=== PATIENT | female | born 1955 | race Caucasian/White ===

== ENCOUNTER → 2019-10-24 | Outpatient (CLI) | payer MEDICARE, SELFPAY | END | disposition home or self-care (01) | PROVIDERS: PCP Family Medicine; Referring Provider Physician Assistant; Visit Provider Physician Assistant | DX: Z20.828 Contact with and (suspected) exposure to other viral communicable diseases (principal) | CPT/HCPCS: 87635; G2023; U0003 ==

== ENCOUNTER → 2019-10-29 11:16 | Outpatient (CLI) | payer MEDICARE, SELFPAY ==
[2019-10-23 10:43] VITALS: BMI 26.6
--- NOTE | 2019-10-29 12:00 | BRBX_PTH ---
PATIENT: NITA FRYE LOC: [facility] U#:[id number] AGE/SX: 70/F ROOM: RE10/29/[address]: Dr. Sharon Marques MD : 1955 BED: DIS: SPEC #: [id number] RECD: 10/29/19 12:37 STATUS: EMILY REJennifer #: [id number] ИВАН: 10/29/19 12:[address]: Sharon Marques DEPT: SURGICAL PATHOLOGY RECD BY: Harsha Prasad ENTERED: 10/29/19 13:13 SP TYPE: BREAST BX JASON DR: Dr. Trace Hilario III, MD Tissues: Left breast, NOS Procedures: Surgery Specimen Level IV HEADER OPERATION: Left breast stereotactic biopsy PRE-OP DIAGNOSIS: Left breast calcifications middle depth 1 o'clock TISSUE SUBMITTED: Left breast core tissue ISCHEMIC TIME: 1 minute FIXATION TIME: 7.5 hours MICROSCOPIC DIAGNOSIS Left breast, calcifications middle depth 1 o'clock, stereotactic biopsy: Fibrocystic change and intraductal hyperplasia with multifocal atypia. Focal microcalcifications. Negative for malignancy. NOAH:sony 10/30/19 COMMENT Correlation with clinical, radiologic findings and appropriate follow up are necessary. Case has been reviewed in consultation with Dr. Beyer who concurs with the above diagnosis. IDC:AM MICROSCOPIC DESCRIPTION Slides are reviewed. GROSS DESCRIPTION Received in fixative is one container labeled with the patient name and designated left breast. The specimen consists of multiple elongated fragments of junior-yellow fibroadipose tissue that in aggregate measure 6 x 3 x 0.3 cm. The entire specimen is submitted in three cassettes. / NOAH:sony 10/29/19 TC:5 CPT: 78678
--- NOTE | 2019-10-29 12:25 | OP.PCM_ITS ---
Report of Operation Date of Procedure: 10/29/19 Pre-Operative Diagnosis: abnormal calcifications in left breast mammograms Post-Operative Diagnosis: same Surgery/Procedure Performed:: left breast stereotactic biopsy Description of Surgical Findings:: pleomorphic calcifications of left breast - upper outer quadrant Type of Anesthesia:: Local - 1%xylocaine Specimen's removed: left breast tissue Estimated Blood Loss (mL): minimal Description of Procedure: After informed consent was given, the patient was brought into the breast biopsy suite. Appropriate time out protocol was followed. She was then placed in the prone position on the stereotactic biopsy table. The patient?s left breast was then placed in the opening at the head of the table. A allergist/immunologist physician compression mammogram was then obtained in the CC view. The suspicious radiological lesion was then identified. Stereo pictures of the lesion were then taken for XYZ coordinates. The Mammotome biopsy stylus was then positioned where it would be entering into the patient?s breast. The skin at this site was then cleansed with a surgical skin preparation. The skin and subcutaneous tissues at this site were then infiltrated with 1% xylocaine. A small skin incision was made with an 11 blade scalpel. The biopsy stylus was then positioned into the patient?s breast at the proper coordinates of depth. Using the Mammotome vacuum-assist device, several core samples of breast tissue were obtained. A specimen mammogram was the obtained. I reviewed the specimen mammogram personally and noted that the abnormal calcifications were within the specimen and therefore the sampling was deemed adequate. A hemostatic marker clip was then placed into the biopsy cavity and a allergist/immunologist physician film revealed that it was properly deployed. The patient was then placed in the supine position and pressure was applied to the breast until no active bleeding was noted. Steristrips were applied to reapproximate the skin. A unilateral mammogram in the CC and MLO view were then taken which revealed that the marker clip was in the same area as the previous suspicious lesion. The patient tolerated the procedure well and was discharged from the breast biopsy suite in good condition. - Complications none noted
== END ==
PROVIDERS: PCP Family Medicine; Referring Provider Surgery; Visit Provider Surgery
DX: R92.8 Other abnormal and inconclusive findings on diagnostic imaging of breast (principal)
CPT/HCPCS: 19081; 88305; J7050; A4648

== ENCOUNTER 2019-11-18 13:20 | Day surgery (SDC) | payer MEDICARE, SELFPAY ==
[2019-10-23 10:43] VITALS: BMI 26.6
--- NOTE | 2019-11-15 18:14 | HP.PCM_ITS ---
History and Physical Date of Admission: 11/18/19 HISTORY AND PHYSICAL ? Brielle Vann 1955 ? ? CHIEF COMPLAINT: ADH of left breast ? HPI: Ms. Vann is 64 y/o WF who is s/p left stereotactic breast biopsy. ?Pathology reveals - ?MICROSCOPIC DIAGNOSIS ?Left breast, calcifications middle depth 1 o?clock, st ereotactic biopsy: ?Fibrocystic change and intraductal hyperplasia with multifocal atypia. ?Focal microcalcifications. ?Negative for malignancy. She denies any problems from the procedure. She notes bruising and probable hematoma but no drainage from the site. She denies fevers. ? ? PAST MEDICAL HISTORY ? 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 Family history of renal stone 12/10/2012 ? Hypercalciuria 01/24/2013 ? Migraine, unspecified, with intractable migraine, so stated, without mention of status migrainosus ? ? Migraine ? Osteoporosis 08/15/2012 ? Shingles ? ? Vitamin D deficiency 08/24/2012 ? PAST SURGICAL HISTORY ? COLONOSCOP W/ OR W/O [facility] SPEC ? 09/01/2009 ? Colonoscopy ? MAMMO STEREOTACTIC CORE BIOPSY LT Left 10/29/2019 ? REMOVAL OF OVARY(S) ? ? ? Oophorectomy, Right ? ? Current Outpatient Medications ? alendronate (FOSAMAX) 70 mg tablet Take 1 tablet by mouth one time a week. Take with a full glass of water, on an empty stomach; do NOT lie down for 30minutes. ? atorvastatin (LIPITOR) 10 mg tablet Take 1 tablet by mouth once daily. ? Hydrochlorothiazide 12.5 mg capsule Take 1 capsule by mouth once daily. ? Cholecalciferol, Vitamin D3, 3,000 unit tab Take 3,000 Units by mouth once daily. ? ? ALLERGIES: Cefdinir; Chlorthalidone; Darvon [Propoxyphene Hcl] ? PERSONAL HISTORY: Social History ?Tobacco Use ? Smoking status: Never Smoker ? Smokeless tobacco: Never Used Substance Use Topics ? Alcohol use: No ? Drug use: No ? FAMILY HISTORY ? Hypertension Mother ? ? Heart Mother ? ? Osteoporosis Mother ? ? Arthritis Mother ? ? other (skin cancer) Mother ? ? Heart Father ? ? Lipids Father ? ? High Cholesterol ? Cancer Father ? ? Skin ? other (renal stones) Father ? ? other (Brain Cancer) Father ? ? from this ? Diabetes Brother ? ? Breast Cancer Maternal Grandmother ? ? Breast Cancer Paternal Aunt ? ? Cancer Paternal Grandmother ? ? OVARIAN ? other (Liver Cancer) Paternal Grandmother ? ? from this ? Cancer Paternal Uncle ? ? PROSTATE ? Osteoporosis Sister ? ? Prostate Cancer Brother ? ? other (renal stones) Brother ? ? ? REVIEW OF SYSTEMS: General - denies fevers, denies anorexia, denies weight loss Cardiovascular - denies chest pain, denies history of [place] Pulmonary -?denies TOB use,?denies shortness of breath, denies coughing up blood Gastrointestinal - denies abdominal pain, denies hematemesis, denies blood in stools Neurological - denies seizures, denies chronic numbness/weakness of extremities ?but has some carpal tunnel symptoms, denies chronic headaches Genitourinary -?taking HCTZ to prevent kidney stones,?denies burning with urination, denies blood in urine Hematological - denies spontaneous/prolonged bleeding Skin - denies nonhealing skin wounds Musculoskeletal -?notes osteoarthritis of hands Endocrine - denies diabetes, no thyroid problems Psychological ??denies hallucinations Obstetrical -??menarche onset at age 11, , first at age 22, breast feeding 1y, BCP initiall early 20s for 3 years, menoapuse age 50, denies HRT use, last menstrual period 03/16/2009 ? PHYSICAL EXAMINATION: General: The patient is 64 year old female, well nourished, well hydrated in no acute distress. The patient is oriented to time, place, and person. VITALS:?.?Ht: 5'2 ?Wt: 149# Temp 98.2F HEENT:?Normocephalic, atraumatic, mucus membranes moist and no lesions NECK:?Supple, full range of motion, no adenopathy and thyroid normal DERMATOLOGY:?Normal, without lesions, non-icteric and non-hirsute BREAST:?soft, non-tender, symmetric, normal nipple-areolar complex, no lymphadenopathy, no nipple discharge. ?Left breast with 6 cm firm area from biopsy with surrounding ecchymosis - probable hematoma. CHEST:?Normal inspiratory effort ABDOMEN:?soft, non-tender and no masses RECTOVAGINAL:?deferred. NEURO:? grossly non-focal EXTREMITIES:?no edema noted ? ? IMPRESSION: ADH of left breast ? PLAN: I have discussed the above with the patient. I have recommended wide local excision of breast tissue around the site of the previous biopsy as marked by the marker clip - thus a left breast biopsy via wire localization. I have explained the procedure to the patient. I have told the patient ?the risks of surgery, including but not limited to: infection, bleeding, scar tissue, injury to any blood vessels, injury to any nerves, cosmetic deformity, dysthesias, wound infections, further surgery (especially if margins are not clear?if the diagnosis changes), complications of anesthesia, etc. ??the patient understands. ? The patient was offered a surgery/procedure ?The provider and patient have discussed in detail the risk of exposure to and/or potential harm posed by the COVID-19 virus with having a surgery/procedure at this time versus the risk of??delaying the surgery/procedure. It is not possible to know either the risk of delaying the surgery or procedure or chance of getting an infection with perfect accuracy, but a joint decision was made between the patient and the provider ?to proceed at this time with the scheduled surgery/procedure. ?? I have answered all questions to the patient?s satisfaction and the patient has no further questions. . Diagnoses: (N60.92) Atypical ductal hyperplasia of left breast (primary encounter diagnosis) Return to Clinic: The patient is instructed to follow-up with me after the procedure ? Sharon Marques MD
[2019-11-18] VITALS (7 sets, daily range): BP systolic 103–132; BP diastolic 63–90; PULSE 82–90; RESP 14–18; TEMP 36.1–36.3; O2SAT 97–99; BMI 27.4
--- NOTE | 2019-11-18 | IMM_PTH ---
PATIENT: NITA FRYE LOC: [facility] [place] U#:[id number] AGE/SX: 64/F ROOM: RE11/18/[address]: Dr. Sharon Marques MD : 1955 BED: DIS: 11/18/2019 SPEC #: [id number] RECD: 11/21/19 12:33 STATUS: EMILY REQ #: [id number] ИВАН: 11/18/19 00:[address]: Sharon Marques DEPT: IMMUNOHISTOCHEMISTRY RECD BY: Mikaela Peres ENTERED: 11/21/19 12:36 SP TYPE: IMMUNO OTHR DR: Dr. Trace Hilario III, MD Tissues: Left breast, NOS Procedures: CALPONIN-1 (add) CK5-6 (add) CK8 (add) HERNÁNDEZ-2 (add) E-CAD (add) HER2 MURRAY (add) KI-67 (add) P53 (add) NV (add) P40 (add) ER (initial) PHYSICIAN & [address] [address] SPECIMEN INFORMATION: Tissue Source: Left breast biopsy Clinical Info: ADH left breast Specimen Number: [id number] #1 CPT code: 78807, 87056 x7, 54076 x3 METHODOLOGY: Deparaffinized sections of prefer/formalin-fixed tissue or PAP/DQ stained slides are incubated with monoclonal/polyclonal antibodies/oligonucleotide probes. Localization is made via biotin free immunoperoxidase method. Appropriate controls are performed and reacted as expected. Results on target cell population are indicated in the following table: RESULTS: ANTIBODY / CLONE RESULT Block 1 P53 (DO-7) negative Ki-67 (30-9) positive, 5-8% CK8 (46slpbA27) positive CK5-6 (D5 & 1684) positive, basal Calponin-1 (KK459N) positive P40 (BC28) positive E-Cad (ECH-6) positive HERNÁNDEZ-2 (SP21) positive MORPHOMETRIC ANALYSIS ER (clone 6F11) negative, 0% NV (clone 16/1E2) negative, 0% Her-2Neu (clone CB11) positive, 3+ The prognostic test for HER2 is performed on formalin-fixed paraffin embedded tissue. A 3+ (positive) staining pattern is defined as intense, homogeneous, complete, circumferential membranous staining in >10% of contiguous tumor cells. A similar weak (2+) staining pattern is interpreted as equivocal. ELIANA follow-up testing is recommended for all equivocal cases. Positivity/negativity for ER/NV is reported if > or < 1% of the tumor cells are immuno- reactive, respectively. The ASCO/CAP criteria is used for scoring. Reference: Journal of Clinical Oncology, 2013; 31:0307-3318 & 2010; 16:8510-7080. Duration of fixation: 4 Hrs; Sample Adequate: Yes. These assays have not been validated on decalcified tissues. Results should be interpreted with caution given the likelihood of false negativity on decalcified specimens. These tests were developed and their performance characteristics determined by [facility]. They may not have been cleared or approved by the U.S. Food and Drug Administration. The FDA has determined that such clearance or approval is not necessary. The above immunohistochemical/dualISH markers are ordered and reviewed by the Pathologist. 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 AM:sony 11/24/19 Case has been reviewed in consultation with Dr. Melvin who concurs with the above diagnosis. IDC:SJ
--- NOTE | 2019-11-18 | BREAST_PTH ---
PATIENT: NITA FRYE LOC: [facility] – [place] U#:[id number] AGE/SX: 64/F ROOM: RE11/18/[address]: Dr. Sharon Marques MD : 1955 BED: DIS: 11/18/2019 SPEC #: [id number] RECD: 11/18/19 15:40 STATUS: EMILY MENDEZ #: [id number] ИВАН: 11/18/19 00:[address]: Sharon Marques DEPT: SURGICAL PATHOLOGY RECD BY: Rio Romano ENTERED: 11/19/19 08:41 SP TYPE: BREAST OTHR DR: Dr. Trace Hilario III, MD Tissues: Left breast, NOS Procedures: Surgery Specimen Level V HEADER OPERATION: Breast biopsy with wire localization PRE-OP DIAGNOSIS: ADH left breast TISSUE SUBMITTED: Left breast biopsy with wire MICROSCOPIC DIAGNOSIS Left breast, biopsy: Ductal carcinoma in situ, micropapillary and cystic types with the following characteristics: Nuclear grade - 3/3 Maximal length - 6.5 millimeters Other findings - florid atypical intraductal hyperplasia, rare microcalcifications and fibrocystic change. See comment. AM:sony 11/21/19 COMMENT Immunohistochemistry ([id number]) supports the above diagnosis. ER/KS/Gnl1vvx studies are being performed on sections of tumor and the results from this study will be reported separately ([id number]). Reference is made to the patient's left breast, calcifications middle depth 1 o'clock, stereotactic biopsy ([id number]) in which fibrocystic change and multifocal atypical intraductal hyperplasia was identified. Case has been reviewed in consultation with Dr. Melvin who concurs with the above diagnosis. IDC:SJ MICROSCOPIC DESCRIPTION Slides are reviewed. GROSS DESCRIPTION Received in fixative is one container labeled with the patient's name and designated left breast biopsy with wire. The specimen consists of an unoriented piece of fibroadipose tissue measuring 4.5 x 4.5 x 3 cm. A needle wire is present outside the specimen. The specimen is inked and serially sectioned and reveal a biopsy cavity filled with blood clot measuring 3 x 2.5 x 1.5 cm. No mass lesion is identified. Grades 6 [employer] 8 Teacher sections are submitted in 12 cassettes. The entire biopsy cavity with tissue is submitted. Sections will be submitted after overnight fixation. About 90% of the specimen is submitted. / SJ:rg 11/19/19 TC:0 CPT: 38049 ADDENDUM ADDENDUM ADDENDUM ADDENDUM ADDENDUM ADDENDUM ADDENDUM ADDENDUM ADDENDUM ADDENDUM ADDENDUM ADDENDUM ADDENDUM ADDENDUM ADDENDUM ADDENDUM ADDENDUM ADDENDUM ADDENDUM ADDENDUM ADDENDUM ADDENDUM ADDENDUM ADDENDUM ADDENDUM ADDENDUM ADDENDUM ADDENDUM 12/09/2019 13:08 ADDENDUM 12/09/2019 13:08 ADDENDUM 12/09/2019 13:08 ADDENDUM 12/09/2019 13:08 ADDENDUM 12/09/2019 13:08 DUCTAL CARCINOMA IN SITU SUMMARY: Procedure - wire-guided excisional biopsy. Specimen type - excisional biopsy Laterality - let breast Size (extent of DCIS): Estimated size (extent) - 6.5 x 2.5 cm Number of blocks - 7 of 12. Architectural pattern - micropapillary and cystic nuclear grade 3/3. Margins - 0.1 cm from inked margin. Regional lymph nodes - no lymph nodes submitted. Microcalcifications - present in non-neoplastic tissue. Additional Pathologic Findings - florid atypical intraductal hyperplasia and fibrocystic change. Ancillary Studies from previous specimen ([id number]): ER - negative, 0% KS - negative, 0% Her2 jessie (IHC) - positive, 3+ Pathologic Staging: pTis(DCIS) Nx Mx The above summary is in compliance with [employer] of [place] [employer] (CAP) Cancer Protocols Checklist and [place] Joint Committee on Cancer (AJCC), Staging Manual, 8th Ed. This case was reviewed and diagnosis discussed with Dr. Marques and Dr. Mccracken on 12/01/19. Case has been reviewed in consultation with Dr. Melvin who concurs with the above diagnosis. IDC:SJ
[2019-11-18] MEDS: Lactated Ringers 1,000 ML 75 ML IV (13:56)
--- NOTE | 2019-11-18 14:15 | BI_ITS ---
SURGICAL BREAST SPECIMEN RADIOGRAPH CLINICAL: Document presence of tissue clip marker in biopsy specimen. FINDINGS: Specimen shows presence of tissue clip marker. Electronically Signed: Delvis Chang, at 16:05 EDT , Service support , BI/Breast Biopsy Specimen
--- NOTE | 2019-11-18 14:55 | DCINST_ITS ---
Discharge Diet: No Restrictions Discharge Activity: Return to Normal Activity, May not drive while taking narcotic pain medications. Additional Activity Instructions:: Avoid any blunt force against the left breast Call your doctor if your incision/area has: Continuous Slow Oozing, Foul Smelling Discharge Call your doctor if you observe: Fever of 101 or Higher Additional Instructions: Recommended pain control regimen - May take 600 mg ibuprofen (Motrin) and then in 3-4 hours, may take 650 mg acetaminophen (Tylenol), then in 3-4 hours may take 600 mg ibuprofen, then in 3- 4 hours may take 650 mg acetaminophen and so on for 2-3 days May take narcotic pain medication for pain that is not controlled by above and at night for comfort through the night Leave dressings in place May get dressings wet in shower - do not scrub in the area and pat dry Do not soak - no tub baths/swimming If dressing appears to be soiled/open at one end/no longer sealed - may remove dressing but leave site uncovered (do not replace with any type of dressing) - leave steristrips in place - may get wet but do not scrub in the area and pat dry Swelling and bruising will occur in the area of the incision Ice packs applied to the area will help, apply as long as tolerated and for your comfort Wear supportive bra during day Allergies/Adverse Reactions: Allergies propoxyphene HCl [From Darvon] Allergy (Verified 11/18/19 13:37) Hives cefdinir Adverse Reaction (Verified 11/18/19 13:37) Diarrhea chlorthalidone Adverse Reaction (Verified 11/18/19 13:37) Other Medications to take at Discharge Cholecalciferol (Vitamin D3) [D3-2000] 3,000 unit PO DAILY 04/14/15 Hydrochlorothiazide 12.5 mg PO DAILY 04/14/15 atorvastatin 10 mg tablet 10 mg PO QHS 10/23/19 Alendronate Sodium [Fosamax] 70 mg PO MO 11/07/19 Hydrocodone/Acetaminophen [[place] 5-325 Tablet] 1 each PO Q12H PRN PRN 3 Days #6 tablet 11/18/19 The following prescriptions were given: Hydrocodone/Acetaminophen [[place] 5-325 Tablet] 1 each PO Q12H PRN PRN 3 Days #6 tablet PRN Reason: Pain Score 6-10/10 Transmission Status: Sent to [facility] Primary Care Physician: Trace Hilario III, MD [Primary Care Provider] - Please Follow Up With: Sharon Marques MD - call When: to be seen in 10-14 days, please call for date and time, thank you
--- NOTE | 2019-11-18 15:52 | PCM.OPRPT ---
Report of Operation Date of Procedure: 11/18/19 Pre-Operative Diagnosis: ductal hyperplasia with multifocal atypia of left breast Post-Operative Diagnosis: same Surgery/Procedure Performed:: left breast excisional biopsy via wire localization Description of Surgical Findings:: upper outer quadrant of left breast, hematoma at biopsy site Type of Anesthesia:: Local MAC Anesthesiologist: Meenakshi Reddy Specimen's removed: left breast mass Estimated Blood Loss (mL): < 10 Fluids Replaced: 1000 ml RL Description of Procedure: After informed consent was given, the patient was brought into the Breast Stereotactic Radiology suite. Appropriate time out protocol was followed. The patient was then placed in the prone position on the [place] stereotactic table. The patient?s left breast was placed in the opening at the head of the table. A junior mechanical engineer compression mammogram was then obtained in the CC view. The marker clip that was previously placed was identified. Stereo pictures of the lesion were then taken for XYZ coordinates. The Kopans needle was then positioned where it would be entering into the patient?s breast. The skin at this site was then cleansed with a surgical skin preparation. The skin and subcutaneous tissues at this site were then infiltrated with 1% xylocaine. The Kopans needle was then positioned into the patient?s breast at the proper coordinates of depth. A junior mechanical engineer film was obtained which revealed the wire in proper position. The patient was then placed in the supine position and the wire was taped into place. A unilateral mammogram in the CC and MLO view were then taken for use in the OR. The patient tolerated this portion of the procedure well and was brought to the AC awaiting surgery in the OR. The patient was then brought to the Operating Room. Appropriate time out protocol was followed. The patient was then placed on the operating table in the supine position. A wire had already been placed in the stereotactic biopsy room in the radiology department as described above. The left breast with the wire in placed was then prepped with a sterile surgical skin preparation and sterile surgical drapes were placed. The skin and subcutaneous tissues at the site of the breast lesion was then infiltrated with 1% xylocaine with epinephrine. A transverse skin incision was then made at the wire entrance site in the upper outer quadrant of the left breast with a 15 blade scalpel and carried down through to the subcutaneous tissues. Hemostasis was controlled with electrocautery. The wire was then palpated out within the breast tissue. It was brought into the wound from outside. The breast tissue surrounding the wire was then carefully palpated out and from the surrounding tissues using electrocautery. This was breast tissue with a hematoma. The breast tissue, once from the breast, was then forwarded to the radiology department, where a specimen mammogram revealed that the marker clip was within the specimen. The breast tissue was then forwarded to pathology for analysis. The wound cavity was carefully examined. No further suspicious tissue was palpated or visualized. Hemostasis was carefully controlled with electrocautery. The subdermal tissues were then approximated with vicryl suture. The incision was then reapproximated close using running monocryl suture. Cavilon and steristrips were then placed to reinforce the skin closure. Sponge, needle, and instrument count were verified and correct at the time of skin closure. A sterile dressing was then applied. The patient was then brought to the Recovery Room in stable condition. - Complications none noted - Admit VTE Documentation VTE Present on Admission: Yes VTE Mechan Device Prophylaxis: SCD's
== END 2019-11-18 17:01 | disposition home or self-care (01) ==
LOC: SDC 13:21 → AC 13:30
PROVIDERS: Anesthesiology; PCP Family Medicine; Referring Provider Surgery; Visit Provider Surgery
PROC: (CPT 19125; principal; 2019-11-18 15:10)
DX: D05.12 Intraductal carcinoma in situ of left breast (principal); Z11.59 Encounter for screening for other viral diseases; M81.0 Age-related osteoporosis without current pathological fracture; E55.9 Vitamin D deficiency, unspecified; E78.00 Pure hypercholesterolemia, unspecified; Z78.0 Asymptomatic menopausal state; Z79.899 Other long term (current) drug therapy
CPT/HCPCS: 19125; 19281; 76098; 87635; 88307; 88341; 88342; 94799; J7120; A4216; J2405; U0003

== ENCOUNTER 2019-12-06 09:54 | Emergency (ER) | payer MEDICARE, SELFPAY ==
[2019-11-18 13:38] VITALS: BMI 27.4
[2019-12-06 09:56] VITALS: BP 119/85; PULSE 75; RESP 16; TEMP 36.1; O2SAT 97; BMI 27.4
--- NOTE | 2019-12-06 10:25 | EKG12_ITS ---
Test Reason : FAINTING Blood Pressure : / mmHG Vent. Rate : 068 BPM Atrial Rate : 068 BPM P-R Int : 114 ms QRS Dur : 094 ms QT Int : 372 ms P-R-T Axes : 040 026 030 degrees QTc Int : 395 ms Normal sinus rhythm Normal ECG Confirmed by HUMA MOORE, DARIN ([id number]), slot editor CM FONTANEZ ([id number]) on 12/09/2019 9:31:08 AM Referred By: JENNIFER Confirmed By:DARIN FINN MD
--- NOTE | 2019-12-06 10:25 | RAD_ITS ---
STUDY: X-RAY CHEST REASON FOR EXAM: Female, 64 years old. SYNCOPE TECHNIQUE: Single AP portable view of the chest. COMPARISON: 02/01/2016 FINDINGS: The lungs are clear and expanded. There is no demonstrated pleural abnormality. Normal size heart. Normal mediastinum and yasmin. Normal visualized pulmonary arteries. There is atherosclerotic calcification of the aortic arch with tortuosity. Normal visualized thoracic spine. Normal visualized ribs, clavicles, and shoulders. There is no demonstrated abnormality of the visualized soft tissue structures of the upper abdomen. RAD/Chest 1 View (Portable) IMPRESSION: No evidence of acute cardiopulmonary process. Electronically Signed: Edi Beach DO at 10:58 EDT , Service support ,
--- NOTE | 2019-12-06 10:27 | ED.VISSUMM ---
- ER Visit Summary Date of Service: 12/06/19 Chief Complaint: Syncope History of Present Illness: The patient is a 64 F who presents with 2 syncopal episodes that occurred today. Patient states she was weeding in her flower bed and stood up when she passed out. Patient states she felt lightheaded and her was there to catch her. states that she was out for less than 1 minute. Patient states her arms and legs felt heavy. Patient states she sat down and was feeling better. Patient states she stood up to go into the house and passed out again. Patient denies any palpitations. Patient states she did feel slight shortness of breath prior to passing out. Patient denies any nausea or vomiting. Patient denies any headaches. Physical Examination: Vital signs are stable. Patient is afebrile. Patient is in no acute distress. Oral mucosa is pink and moist. Neck is supple. Trachea is midline. There is no JVD noted. Heart was regular rate and rhythm. Lungs are clear and equal bilaterally. Abdomen is soft. Bowel sounds are normal. There is no tenderness. There is no rebound or guarding noted. Skin is warm dry. Cranial nerves II through XII are intact. There are no focal motor or sensory deficits noted. Extremities are intact. There is no calf tenderness or edema. Test Results: EKG showed a normal sinus rhythm with a rate of 68. There are no acute ST or T wave changes. CBC and comprehensive metabolic profile were within normal limits. Troponin was normal. Urinalysis was normal. Portable chest x-ray was obtained. There is no acute cardiopulmonary process. This was interpreted by the radiologist and reviewed by myself. Emergency Department Course and Treatment: Orthostatic vital signs were obtained and were within normal limits. Patient was feeling better on reevaluation. Patient is low risk for syncope according to the [place] syncope rules and [place] syncope rules. Patient was instructed to drink plenty of fluids and get plenty of rest. Patient was instructed to follow-up with her primary care physician in 5 to 7 days. Patient understood and was agreeable with the plan. All questions were answered. Disposition: Discharge home Impression: 1. Syncope This note was generated with [employer] software. It may contain incorrect words, spelling, and punctuation that were not noted in review of the chart prior to signing ED Disposition - Plan for ED Patient: Disposition: Home or Assisted Living Diagnosis: Syncope Instructions: ED Fainting Uncertain Cause Referrals: Trace Hilario III, MD [Primary Care Provider] - 3-5 Days
[2019-12-06 10:45] LABS: Absolute Lymphocyte Count 1.25 X10^3/uL (0.83-4.51); Absolute Neutrophil Count 2.7 X10^3/uL (2.0-7.7); Basophil# 0.04 X10^3/uL; Basophil% 0.9 % (0-1); Eosinophil# 0.13 X10^3/uL; Eosinophils% 2.8 % (0-5); Hematocrit 44.6 % (37-47); Hemoglobin 13.9 g/dL (12.0-15.0); Lymphocyte # 1.25 X10^3/ul (4.0); Lymphocyte % 26.8 % (19-41); Mean Corp Hgb Conc 31.2 g/dL (32-36); Mean Corpuscular Hgb 29.3 pg (27.0-32.0); Mean Corpuscular Volume 93.9 fL (81-99); Monocyte# 0.56 X10^3/uL; NRBC Flagged by Analyzer 0 % (0-5); Neutrophil # 2.67 X10^3/uL (2.7-7.7); Neutrophil % 57.3 % (47-70); Platelet Count 218 K/mm3 (150-450); RBC Distribution Width CV 13.2 % (11.6-14.6); RBC Distribution Width SD 45.3 fl (35.1-43.9); Red Blood Count 4.75 M/mm3 (4.2-5.4); White Blood Count 4.7 K/mm3 (4.4-11.0)
[2019-12-06 10:49] LABS: AST(SGOT) 23 U/L (15-37); Alanine Aminotransfer ALT/SGPT 36 U/L (13-56); Albumin, Serum 3.3 g/dL (3.2-5.0); Alkaline Phosphatase 78 U/L (45-117); Anion Gap 2 (5-15); BUN 18 mg/dL (7-18); BUN/Creat Ratio 21.3 RATIO (10-20); Chloride 107 mmol/L (98-107); Creatinine, Serum 0.84 mg/dL (0.55-1.02); EST Glomerular Filtration Rate 72 mL/min (>60); Est Glom Filt Rate - Afr Amer 87 mL/min (>60); Globulin 3.3 g/dL (2.2-4.2); Glucose 146 mg/dL (74-106); Potassium 3.5 mmol/L (3.5-5.1); Protein, Total 6.6 g/dL (6.4-8.2); Sodium Level 141 mmol/L (136-145)
[2019-12-06 11:00] VITALS: BP 108/74; BP 120/71; BP 125/80; PULSE 75; PULSE 78; PULSE 85
[2019-12-06 11:11] LABS: Bacteria 0 SEEN /hpf (None Seen); Mucous, Urine 0 SEEN /hpf (<or=2+); Red Blood Cells-Urine 0 SEEN /hpf (0-5); Squamous Epithelial Cells - UA 0 SEEN /hpf (5-10); White Blood Cells 0 SEEN /hpf (0-5)
[2019-12-06 11:15] LABS: Color, Urine Yellow (Yellow); Glucose, Dipstick Normal (Normal); Ketone-Dipstick Negative (Negative); Leukocyte Esterase-Dipstick Negative /ul (Negative); Nitrite-Dipstick Negative (Negative); Occult Blood-Urine Negative /ul (Negative); Protein-Dipstick Negative (Negative); Specific Gravity, Urine 1.015 (1.002-1.030); Urine Bilirubin Dipstick Negative (Negative); Urine Clarity Clear (Clear); Urine Urobilinogen Normal (Normal)
[2019-12-06 11:44] VITALS: BP 115/75; PULSE 74; RESP 18; O2SAT 98
== END 2019-12-06 11:47 | disposition home or self-care (01) ==
PROVIDERS: Emergency Provider Emergency Medicine; PCP Family Medicine
DX: R55 Syncope and collapse (principal); I10 Essential (primary) hypertension; E78.00 Pure hypercholesterolemia, unspecified; Z79.899 Other long term (current) drug therapy
CPT/HCPCS: 71045; 80053; 81001; 84484; 85025; 93005; 99285; A4216

== ENCOUNTER 2019-12-12 12:26 | Day surgery (SDC) | payer MEDICARE, SELFPAY ==
[2019-12-09 19:44] LABS: Probe Check PASS; Specimen Processing Control PASS
--- NOTE | 2019-12-11 18:40 | PCM.HP.BLA ---
History and Physical Date of Admission: 12/12/19 HISTORY AND PHYSICAL ? Brielle Vann 1955 ? ? 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 HPI: Ms. Vann is 64 y/o WF who underwent left breast biopsy via wire localization two weeks ago for what was initially thought to be ADH. However, final pathology after biopsy revealed DCIS with 1 mm margins. Both hem/onc and rad onc have recommended reexcision of this area, given that ER/CO is negative and margins are 1mm and this is according to NCCN guidelines. She denies any problems from the procedure. She notes bruising and probable hematoma but no drainage from the site. She denies fevers. ? ? 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 Osteoporosis 08/15/2012 Shingles ? Vitamin D deficiency 08/24/2012 DCIS of left breast ? PAST SURGICAL HISTORY ? COLONOSCOP W/ OR W/O [facility] SPEC ? 09/01/2009 ? Colonoscopy ? MAMMO STEREOTACTIC CORE BIOPSY LT Left 10/29/2019 ? REMOVAL OF OVARY(S) ? ? ? Oophorectomy, Right ? ? Current Outpatient Medications ? alendronate (FOSAMAX) 70 mg tablet Take 1 tablet by mouth one time a week. Take with a full glass of water, on an empty stomach; do NOT lie down for 30minutes. ? atorvastatin (LIPITOR) 10 mg tablet Take 1 tablet by mouth once daily. ? Hydrochlorothiazide 12.5 mg capsule Take 1 capsule by mouth once daily. ? Cholecalciferol, Vitamin D3, 3,000 unit tab Take 3,000 Units by mouth once daily. ? ? ALLERGIES: Cefdinir; Chlorthalidone; Darvon [Propoxyphene Hcl] ? PERSONAL HISTORY: Social History ?Tobacco Use ? Smoking status: Never Smoker ? Smokeless tobacco: Never Used Substance Use Topics ? Alcohol use: No ? Drug use: No ? FAMILY HISTORY ? Hypertension Mother ? ? Heart Mother ? ? Osteoporosis Mother ? ? Arthritis Mother ? ? other (skin cancer) Mother ? ? Heart Father ? ? Lipids Father ? ? High Cholesterol ? Cancer Father ? ? Skin ? other (renal stones) Father ? ? other (Brain Cancer) Father ? ? from this ? Diabetes Brother ? ? Breast Cancer Maternal Grandmother ? ? Breast Cancer Paternal Aunt ? ? Cancer Paternal Grandmother ? ? OVARIAN ? other (Liver Cancer) Paternal Grandmother ? ? from this ? Cancer Paternal Uncle ? ? PROSTATE ? Osteoporosis Sister ? ? Prostate Cancer Brother ? ? other (renal stones) Brother ? ? ? REVIEW OF SYSTEMS: General - denies fevers, denies anorexia, denies weight loss Cardiovascular - denies chest pain, denies history of AL Pulmonary -?denies TOB use,?denies shortness of breath, denies coughing up blood Gastrointestinal - denies abdominal pain, denies hematemesis, denies blood in stools Neurological - denies seizures, denies chronic numbness/weakness of extremities?but has some carpal tunnel symptoms, denies chronic headaches Genitourinary -?taking HCTZ to prevent kidney stones,?denies burning with urination, denies blood in urine Hematological - denies spontaneous/prolonged bleeding Skin - denies nonhealing skin wounds Musculoskeletal -?notes osteoarthritis of hands Endocrine - denies diabetes, no thyroid problems Psychological ??denies hallucinations Obstetrical -??menarche onset at age 11, , first at age 22, breast feeding 3y, BCP initiall early 20s for 3 years, menoapuse age 50, denies HRT use, last menstrual period 03/16/2009 ? PHYSICAL EXAMINATION: General: The patient is 64 year old female, well nourished, well hydrated in no acute distress. The patient is oriented to time, place, and person. VITALS:?.?Ht: 5'2 ?Wt: 149# Temp 98.2F HEENT:?Normocephalic, atraumatic, mucus membranes moist and no lesions NECK:?Supple, full range of motion, no adenopathy and thyroid normal DERMATOLOGY:?Normal, without lesions, non-icteric and non-hirsute BREAST:?soft, non-tender, symmetric, normal nipple-areolar complex, no lymphadenopathy, no nipple discharge. ?Healed left breast incision site. CHEST:?Normal inspiratory effort ABDOMEN:?soft, non-tender and no masses RECTOVAGINAL:?deferred. NEURO:? grossly non-focal EXTREMITIES:?no edema noted ? ? IMPRESSION: DCIS of left breast ? PLAN: I have discussed the above with the patient. As per hem/onc and radiation oncology recommendations, the patient should have reexcision of margins, given margins of 1 mm. The patient had initially underwent breast biopsy for ADH of breast and therefore this was a new diagnosis. I have explained the procedure to the patient. I have told the patient ?the risks of surgery, including but not limited to: infection, bleeding, scar tissue, injury to any blood vessels, injury to any nerves, cosmetic deformity, dysthesias, wound infections, further surgery (especially if margins are not clear?if the diagnosis changes), complications of anesthesia, etc. ??the patient understands. ? The patient was offered a surgery/procedure ?The provider and patient have discussed in detail the risk of exposure to and/or potential harm posed by the COVID-19 virus with having a surgery/procedure at this time versus the risk of??delaying the surgery/procedure. It is not possible to know either the risk of delaying the surgery or procedure or chance of getting an infection with perfect accuracy, but a joint decision was made between the patient and the provider ?to proceed at this time with the scheduled surgery/procedure. ?? I have answered all questions to the patient?s satisfaction and the patient has no further questions. . ? ? ? Sharon Marques MD
[2019-12-12] VITALS (7 sets, daily range): BP systolic 104–117; BP diastolic 73–85; PULSE 66–87; RESP 16; TEMP 36.1–36.8; O2SAT 97–98; BMI 26.6
[2019-12-12] MEDS: Lactated Ringers 1,000 ML 75 ML IV (13:07)
--- NOTE | 2019-12-12 14:00 | BRBX_PTH ---
PATIENT: NITA FREY LOC: [facility] U#:[id number] AGE/SX: 64/F ROOM: RE12/12/[address]: Dr. Sharon Marques MD : 1955 BED: DIS: 12/12/2019 SPEC #: [id number] RECD: 12/15/19 07:20 STATUS: EMILY MENDEZ #: [id number] ИВАН: 12/12/19 14:[address]: Sharon Marques DEPT: SURGICAL PATHOLOGY RECD BY: Harsha Prasad ENTERED: 12/15/19 09:12 SP TYPE: BREAST BX OTHR DR: Dr. Trace Hilario III, MD Tissues: Left breast, NOS Procedures: Surgery Specimen Level IV HEADER OPERATION: Left breast lumpectomy PRE-OP DIAGNOSIS: DCIS left breast TISSUE SUBMITTED: Left breast lumpectomy MICROSCOPIC DIAGNOSIS Left breast, lumpectomy: Ductal carcinoma in situ. See cancer checklist. AM:sony 12/23/19 COMMENT DUCTAL CARCINOMA IN SITU SUMMARY: Procedure - lumpectomy Specimen - partial breast Laterality - left Size (extent of DCIS): Estimated size (extent) - 2.5 x 2.5 x 1.5 cm (measured from glass slides) Architectural pattern - cystic hypersecretory and micropapillary Nuclear grade - 2/3 Necrosis - not identified Margins - focally positive for ductal carcinoma in situ. Regional lymph nodes - not submitted Microcalcifications - present in ductal carcinoma in situ and non-neoplastic tissue. Additional Pathologic Findings - intraductal hyperplasia with multifocal atypical intraductal hyperplasia. Ancillary Studies from previous specimen ([id number] / [id number]): ER - negative, 0% CT - negative, 0% Her2 jessie ([facility]) - positive, 3+ Pathologic Staging: pTis(DCIS) Nx Mx The above summary is in compliance with [employer] [place] Pathology (CAP) Cancer Protocols Checklist and [place] Joint Committee on Cancer (AJCC), Staging Manual, 8th Ed. This case was seen in consultation with Dr. Marques of [employer]. Please see the complete consultative report in EMR. Case has been reviewed in consultation with Dr. Melvin who concurs with the above diagnosis. IDC:SJ MICROSCOPIC DESCRIPTION Slides are reviewed. GROSS DESCRIPTION Received in fixative is one container labeled with the patient's name and designated left breast lumpectomy. The specimen consists of an unoriented piece of fibroadipose tissue measuring 7 x 6 x 5 cm. A piece of skin is noted at one edge measuring 2.5 x 0.3 cm. The specimen is inked. Sections reveal a biopsy cavity measuring 4 x 3 x 2.5 cm. The area surrounding the biopsy cavity shows an indurated area consistent with fat necrosis. The biopsy cavity is 0.5 to 2 cm away from the inked resection margin. No obvious mass lesion is identified. Child Custody Evaluator sections are submitted in 12 cassettes. Cassette 1 contains the skin piece, entirely submitted. Sections are submitted after additional fixation. / NOAH:sony 12/15/19 TC:0 CPT:
--- NOTE | 2019-12-12 14:43 | DCINST_ITS ---
Discharge Diet: No Restrictions Discharge Activity: Return to Normal Activity, May not drive while taking narcotic pain medications. Lifting Restrictions: no lifting greater than 10 pounds for two weeks Call your doctor if your incision/area has: Continuous Slow Oozing, Foul Smelling Discharge Call your doctor if you observe: Fever of 101 or Higher Additional Instructions: Recommended pain control regimen - May take 600 mg ibuprofen (Motrin) and then in 3-4 hours, may take 650 mg acetaminophen (Tylenol), then in 3-4 hours may take 600 mg ibuprofen, then in 3- 4 hours may take 650 mg acetaminophen and so on for 2-3 days May take narcotic pain medication for pain that is not controlled by above and at night for comfort through the night Leave dressings in place May get dressings wet in shower - do not scrub in the area and pat dry Do not soak - no tub baths/swimming If dressing appears to be soiled/open at one end/no longer sealed - may remove dressing but leave site uncovered (do not replace with any type of dressing) - leave steristrips in place - may get wet but do not scrub in the area and pat dry For breast surgery - Wear supportive bra during the day Swelling and bruising will occur in the area, ice packs to the area may provide comfort, apply as tolerated Avoid excessive bouncing/jumping for at least two weeks, avoid any impact to the breast Allergies/Adverse Reactions: Allergies propoxyphene HCl [From Darvon] Allergy (Verified 12/12/19 12:48) Hives cefdinir Adverse Reaction (Verified 12/12/19 12:48) Diarrhea chlorthalidone Adverse Reaction (Verified 12/12/19 12:48) Other Medications to take at Discharge Cholecalciferol (Vitamin D3) [D3-2000] 3,000 unit PO DAILY 04/14/15 Hydrochlorothiazide 12.5 mg PO DAILY 04/14/15 atorvastatin 10 mg tablet 10 mg PO QHS 10/23/19 Alendronate Sodium [Fosamax] 70 mg PO MO 11/07/19 Hydrocodone Bitart/Apap 5-325 [[place] 5MG-325MG] 1 tablet PO Q8H PRN PRN 3 Days #9 tablet 12/12/19 The following prescriptions were given: Hydrocodone Bitart/Apap 5-325 [[place] 5MG-325MG] 1 tablet PO Q8H PRN PRN 3 Days #9 tablet PRN Reason: Pain Transmission Status: Sent to [facility] Primary Care Physician: Trace Hilario III, MD [Primary Care Provider] - Please Follow Up With: Sharon Marques MD - call [phone] When: to be seen in 7-10 days, please call for date and time, thank you
--- NOTE | 2019-12-12 14:56 | OP.PCM_ITS ---
Report of Operation Date of Procedure: 12/12/19 Pre-Operative Diagnosis: DCIS of left breast Post-Operative Diagnosis: same Surgery/Procedure Performed:: left breast lumpectomy Description of Surgical Findings:: dense breast tissue with multiple cysts highway painter helper: Kenneth Bishop Type of Anesthesia:: General Anesthesiologist: Lea De La Cruz Specimen's removed: left breast lumpectomy Estimated Blood Loss (mL): < 5 ml Fluids Replaced: 800 ml RL Description of Procedure: After informed consent was given the patient was then brought to the Operating Room. Appropriate time out protocol was followed. The patient was then placed on the operating table in the supine position. The left breast was then prepped with a sterile surgical skin preparation and sterile surgical drapes were placed. The skin and subcutaneous tissues at the site of the breast lesion was then infiltrated with 1% xylocaine with epinephrine. A skin incision was then made at the site of the previous transverse skin incision - upper outer aspect of left breast. This was made in an elliptical fashion to completely excise the scar. It was carried down through to the subcutaneous tissues. Hemostasis was controlled with electrocautery. The breast tissue surrounding the biopsy cavity was then carefully palpated out and from the surrounding tissues using electrocautery. This was carefully done to keep the cavity intact and thus took some time. The breast tissue was then forwarded to pathology for analysis. The wound cavity was carefully examined. No further suspicious tissue was palpated or visualized. Hemostasis was carefully controlled with electrocautery. The watt bdermal tissues were then approximated with vicryl suture. The incision was then reapproximated close using running monocryl suture. Cavilon and steristrips were then placed to reinforce the skin closure. Sponge, needle, and instrument count were verified and correct at the time of skin closure. A sterile dressing was then applied. The patient was then brought to the Recovery Room in stable condition. - Complications none noted - Admit VTE Documentation VTE Present on Admission: Yes VTE Mechan Device Prophylaxis: SCD's
[2019-12-12] MEDS: Bupiv/Epi 0.25% 30 ML Vial (15:04)
[2019-12-12] MEDS: HYDROcodone Bitartrate/Apap 5/325 Tablet PO (17:00)
== END 2019-12-12 17:35 | disposition home or self-care (01) ==
LOC: SDC 12:27 → AC 12:28
PROVIDERS: Anesthesiology; PCP Family Medicine; Referring Provider Surgery; Visit Provider Surgery
PROC: (CPT 19301; principal; 2019-12-12 13:45)
DX: D05.12 Intraductal carcinoma in situ of left breast (principal); M81.0 Age-related osteoporosis without current pathological fracture; E55.9 Vitamin D deficiency, unspecified; E78.00 Pure hypercholesterolemia, unspecified; Z78.0 Asymptomatic menopausal state; Z79.899 Other long term (current) drug therapy; Z11.59 Encounter for screening for other viral diseases
CPT/HCPCS: 00400; 19301; 87635; 88305; 94799; J7120; J2405; U0003

== ENCOUNTER 2019-12-31 15:44 | Observation (INO) | payer MEDICARE, SELFPAY ==
[2019-12-12 12:50] VITALS: BMI 26.6
--- NOTE | 2019-12-29 18:55 | PCM.HP.BLA ---
History and Physical Date of Admission: 12/31/19 HISTORY AND PHYSICAL ? Brielle Vann 1955 ? ? REFERRING PHYSICIAN: Sharon Marques MD ? CHIEF COMPLAINT: Multifocal DCIS of left breast ? HPI: The patient is a 64 year old female presents with multifocal DCIS of the left breast. She had undergone a needle core left breast biopsy with findings of ADH. She then was s/p left breast biopsy via wire localization at [facility] done on 11/18/2019. She was found to have DCIS of the left breast with close margins. She underwent left breast lumpectomy 12/12/2019 due to close margins. Pathology reveals positive margins with larger focus of DCIS. In discussion with radiation oncology and with hematology/oncology, it would be in the patient's best interests to undergo mastectomy. I have discussed this with patient and she wishes to proceed. She doesn't want any reconstruction at this point in time. ? ? PAST MEDICAL HISTORY ? 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 Ductal carcinoma in situ of left breast 11/2019 ? Family history of renal stone 12/10/2012 ? Hypercalciuria 01/24/2013 ? Migraine, unspecified, with intractable migraine, so stated, without mention of status migrainosus ? ? Migraine ? Osteoporosis 08/15/2012 ? Other benign mammary dysplasias of left breast 11/2019 ? atypical ductal dysplasia ? Shingles ? ? Vitamin D deficiency 08/24/2012 ? PAST SURGICAL HISTORY ? COLONOSCOP W/ OR W/O [facility] SPEC ? 09/01/2009 ? Colonoscopy ? EXCIS BREAST LES W XRAY MARKER Left 11/18/2019 ? MAMMO STEREOTACTIC CORE BIOPSY LT Left 10/29/2019 ? MASTECTOMY, PARTIAL Left 12/12/2019 ? REMOVAL OF OVARY(S) ? ? ? Oophorectomy, Right ? ? Current Outpatient Medications ? lactobacillus acidophilus 100 mg (1 billion cell) cap(s) Take 390 mg by mouth once daily. ? cephALEXin (KEFLEX) 500 mg capsule Take 1 capsule by mouth twice daily for 7 days. ? alendronate (FOSAMAX) 70 mg tablet Take 1 tablet by mouth one time a week. Take with a full glass of water, on an empty stomach; do NOT lie down for 30minutes. ? atorvastatin (LIPITOR) 10 mg tablet Take 1 tablet by mouth once daily. ? Hydrochlorothiazide 12.5 mg capsule Take 1 capsule by mouth once daily. ? Cholecalciferol, Vitamin D3, 3,000 unit tab Take 3,000 Units by mouth once daily. ? ? ALLERGIES: Cefdinir, Chlorthalidone, and Darvon [Propoxyphene Hcl] ? PERSONAL HISTORY: Social History ?Tobacco Use ? Smoking status: Never Smoker ? Smokeless tobacco: Never Used Substance Use Topics ? Alcohol use: No ? Drug use: No ? FAMILY HISTORY ? Hypertension Mother ? ? Heart Mother ? ? Osteoporosis Mother ? ? Arthritis Mother ? ? other (skin cancer) Mother ? ? Heart Father ? ? Lipids Father ? ? High Cholesterol ? Cancer Father ? ? Skin ? other (renal stones) Father ? ? other (Brain Cancer) Father ? ? from this ? Diabetes Brother ? ? No Known Problems Daughter ? ? No Known Problems Daughter ? ? No Known Problems Daughter ? ? Breast Cancer Maternal Grandmother ? ? Breast Cancer Paternal Aunt ? ? Cancer Paternal Grandmother ? ? OVARIAN? ? other (Liver Cancer) Paternal Grandmother ? ? from this ? Cancer Paternal Uncle ? ? PROSTATE ? Osteoporosis Sister ? ? Asthma Sister ? ? Prostate Cancer Brother ? ? other (renal stones) Brother ? ? ? REVIEW OF SYSTEMS: General - denies fevers Cardiovascular - denies chest pain Pulmonary - denies coughing up blood Gastrointestinal - denies abdominal pain Neurological - denies seizuress Hematological - denies spontaneous/prolonged bleeding Skin - denies nonhealing skin wounds ? ? PHYSICAL EXAMINATION: General: The patient is 64 year old female, well nourished, well hydrated in no acute distress. The patient is oriented to time, place, and person. VITALS: Temp 97.8F Head ? Normocephalic. EOM intact with sclera clear and no icterus noted. Mouth with mucus membranes moist. Neck - supple with no jugular venous distention noted. Trachea is midline. Chest/breast ? healed left breast incision site - no evidence of infection Lungs ? No labored breathing noted, such as retractions. No cough heard. Abdomen ? soft and benign. . Extremities ? no pitting edema noted. Skin ? normal skin integrity. Neurological ? gait normal, no focal deficits noted Psych ? calm and appropriate ? ? IMPRESSION: multifocal left breast DCIS ? PLAN: I have discussed the above with the patient. We have discussed proceeding with left breast simple mastectomy I have explained the procedure to the patient. I have counseled the patient as to the risks of the procedure, including but not limited to: infection, bleeding, injury to any blood vessels/nerves, scar tissue, seroma, wound infections, complications of anesthesia, etc. ? the patient understands. The patient was offered a surgery/procedure. The provider and patient have discussed in detail the risk of exposure to and/or potential harm posed by the COVID-19 virus with having a surgery/procedure at this time versus the risk of delaying the surgery/procedure. It is not possible to know either the risk of delaying the surgery or procedure or chance of getting an infection with perfect accuracy, but a joint decision was made between the patient and the provider to proceed at this time with the scheduled surgery/procedure. The patient wishes to proceed. ? I have answered all questions to the patient?s satisfaction and the patient has no further questions. . Return to Clinic: The patient is instructed to follow-up with me after the procedure. ? Sharon Marques MD
[2019-12-31] VITALS (9 sets, daily range): BP systolic 109–131; BP diastolic 67–87; PULSE 75–101; RESP 16–18; TEMP 36.4–37.1; O2SAT 97–99; BMI 25.5; BMI 26.4
[2019-12-31] MEDS: Lactated Ringers 1,000 ML 75 ML IV (13:03)
[2019-12-31 13:50] LABS: Prothrombin Time (Protime)PT. 12.9 SECONDS (11.7-14.9)
[2019-12-31 13:51] LABS: Partial Thromboplast Time 25.9 Seconds (24.1-36.2)
--- NOTE | 2019-12-31 14:00 | BREAST_PTH ---
PATIENT: NITA FRYE LOC: MS3 U#:[id number] AGE/SX: 64/F ROOM: [facility] [place] RE12/31/[address]: Dr. Sharon Marques MD : 1955 BED: 1 DIS: 01/01/2020 SPEC #: [id number] RECD: 01/01/20 07:44 STATUS: EMILY REJennifer #: [id number] ИВАН: 12/31/19 14:[address]: Sharon Marques DEPT: SURGICAL PATHOLOGY RECD BY: Cortez Flynn ENTERED: 01/01/20 09:23 SP TYPE: BREAST OTHR DR: Dr. Trace Hilario III, MD Tissues: Left breast, NOS Procedures: Surgery Specimen Level V HEADER OPERATION: Left simple mastectomy PRE-OP DIAGNOSIS: Multifocal DCIS left breast TISSUE SUBMITTED: Left breast MICROSCOPIC DIAGNOSIS Left breast, simple mastectomy: Ductal carcinoma in situ. See cancer summary in the comment section. SJ:sony 01/05/20 COMMENT DUCTAL CARCINOMA IN SITU SUMMARY: Procedure - simple mastectomy Specimen laterality - left Tumor site - central portion breast Size (extent of DCIS): Estimated size (extent) - 2.4 x 1.6 cm (measured microscopically) Number of blocks with DICS - 6 Number of blocks examined - 15 Histologic type - ductal carcinoma in situ Architectural pattern - cribriform, cystic hypersecretory and micropapillary Nuclear grade - grade 2 Necrosis - present, central (expansive comedo necrosis) Margin - Margin uninvolved by ductal carcinoma in situ. The DCIS is 0.1 cm away from the closest posterior margin. Regional lymph nodes - No known lymph nodes submitted or found. Additional Pathologic Findings - intraductal hyperplasia with focal atypia. Extensive changes consistent with previous biopsy site. Microcalcifications - not identified. Clinical history - Please make reference to previous specimens ([id number]) left breast, lumpectomy with diagnosis of ductal carcinoma in situ and ([id number]) left breast, biopsy with diagnosis of ductal carcinoma in situ and ([id number]) left breast, calcifications middle depth 1 o'clock, stereotactic biopsy with diagnosis of fibrocystic changes and intraductal hyperplasia with multifocal atypia. Ancillary Studies from previous specimen ([id number] / [id number]): ER - negative (0%) [place] - negative (0%) Her2 jessie ([facility]) - positive (3+) Pathologic Staging: pTis(DCIS) pNx pMx The above summary is in compliance with [employer] [place] [employer] (CAP) Cancer Protocols Checklist and [place] [employer] Committee on Cancer (AJCC), Staging Manual, 8th Ed. Ductal carcinoma in situ is present adjacent to the biopsy cavity. The atypical intraductal hyperplasia is also noted in association in the area of ductal carcinoma in situ. Case has been reviewed in consultation with Dr. Beyer who concurs with the above diagnosis. IDC:AM MICROSCOPIC DESCRIPTION Slides are reviewed. GROSS DESCRIPTION Received in fixative is one container labeled with the patient's name and designated left breast. The specimen consists of a simple mastectomy specimen with breast tissue with overlying skin ellipse and areola. Two detached pieces of stippled skin are also noted. The breast tissue measures 21 x 23 x 6 cm. The overlying skin ellipse measures 15 x 7.5 cm and the nipple measures 1.2 cm in diameter. The detached piece of skin measures 12 x 1 cm and up to 0.5 cm in thickness and 10 x 0.5 x 0.2 cm. The specimen is not oriented. The presumed margins are inked as follows: superior - blue, inferior - green, posterior - black, medial - red and lateral - orange. Scant pieces of skeletal muscle tissue are noted at the posterior margin. Serial sections reveal a biopsy cavity in the central portion of the breast tissue measuring 6 x 4.5 x 3 cm. The biopsy cavity is 0.1 cm away from the closest posterior margin. No obvious mass lesion is identified. Sections of the rest of the specimen reveal junior cut surfaces with scant fibrous area. Sections will be submitted after additional fixation. / NOAH:sony 01/01/20 Optical Instrument Repairer sections are submitted as follows: 1 - perpendicular posterior margin and lateral margin, 2 - additional perpendicular margins, 3 - nipple and additional posterior margin with skeletal muscle tissue, 4-11 - biopsy cavity with adjacent tissue, 12-15 - title insurance sales representative sections from the other areas. / NOAH:sony 01/02/20 TC:0 [facility]: [id number]
--- NOTE | 2019-12-31 15:39 | PCM.OPRPT ---
Report of Operation Date of Procedure: 12/31/19 Pre-Operative Diagnosis: multifocal left breast DCIS Post-Operative Diagnosis: same Surgery/Procedure Performed:: left simple mastectomy Description of Surgical Findings:: left breast mastectomy for multifocal DCIS project scheduler: Delgado Chris Type of Anesthesia:: General Anesthesiologist: Cali Andino Specimen's removed: left breast Drains: 15 Fr drain in mastectomy bed Estimated Blood Loss (mL): 50 ml Fluids Replaced: 1200 ml RL Description of Procedure: After informed consent was given the patient was brought to the Operating Room. Appropriate time out protocol was followed. She was then placed in the supine position on the operating room table. She was then placed under general anesthesia. The patient's chest and neck and upper arm on the left side was then prepped with a sterile surgical skin preparation. Appropriate sterile drapes were then placed after allowing the skin prep to dry appropriately. A marking pen was used to delineate and chris out the skin incision. It was made in an elliptical fashion to incorporate the previous lumpectomy incision as well as the nipple/areolar complex. The skin and subcutaneous tissues were then infiltrated with local anesthetic. The skin incision was made with a 10 blade scalpel and carried through to the subcutaneous tissues using electrocautery. Any hemorrhage was controlled with electrocautery. The medial and superior skin flap was created by the subcutaneous fat from the breast tissue using electrocautery. Any bleeding vessels were controlled with electrocautery. Larger vessels were ligated with ligaclips. Dissection then continued to the level of the left lateral sternal border. The superior level of dissection was carried down to the clavipectoral fascia. The inferior skin flap was developed in the same fashion and the breast tissue was to its inferior border from the subcutaneous fat. The entire breast tissue and the pectoralis fascia were then from the pectoralis muscles starting medially and continuing laterally. Once dissection was achieved to the lateral aspect of the breast, then the inferior portion of the lateral tissue was transected leaving the breast tissue connected only by the superior lateral tissue (tail of Gonzalez) of the breast. This was then transected completely and the left breast was passed off to the back table to be forwarded to pathology for analysis. Hemostasis of the area of dissection was then achieved with electrocoagulation. A 15 Fr drain was placed in the mastectomy bed and these drains were brought out through separate skin incision and sutured to the skin using nylon suture. Qing was applied to the mastectomy bed. The superior and inferior skin flaps were then approximated together using interrupted vicryl suture along the dermis of the skin edges. The skin incision was then reapproximated with 4-0 monocryl in a running subcuticular fashion. Cavilon and steristrips were then placed to reinforce the skin closure and proper sterile dressings were applied. Patient was brought to the Recovery Room in stable condition. - Complications none noted - Admit VTE Documentation VTE Present on Admission: Yes VTE Mechan Device Prophylaxis: SCD's
[2019-12-31] MEDS: Bupiv/Epi 0.25% 30 ML Vial (15:43)
--- NOTE | 2019-12-31 16:10 | DCINST_ITS ---
Discharge Diet: No Restrictions Discharge Activity: Return to Normal Activity, May not drive while taking narcotic pain medications. Lifting Restrictions: no lifting greater than 10 pounds with left arm Call your doctor if your incision/area has: Continuous Slow Oozing, Foul Smelling Discharge Call your doctor if you observe: Fever of 101 or Higher Additional Instructions: Recommended pain control regimen - May take 600 mg ibuprofen (Motrin) and then in 3-4 hours, may take 650 mg acetaminophen (Tylenol), then in 3-4 hours may take 600 mg ibuprofen, then in 3- 4 hours may take 650 mg acetaminophen and so on for 2-3 days May take narcotic pain medication for pain that is not controlled by above and at night for comfort through the night Leave dressings in place Sponge bath only Do not soak - no tub baths/swimming Leave elastic wrapping in place Empty drain once or twice a day as shown by nurses Allergies/Adverse Reactions: Allergies propoxyphene HCl [From Darvon] Allergy (Verified 12/31/19 12:36) Hives cefdinir Adverse Reaction (Verified 12/31/19 12:36) Diarrhea chlorthalidone Adverse Reaction (Verified 12/31/19 12:36) Other Medications to take at Discharge Cholecalciferol (Vitamin D3) [D3-2000] 3,000 unit PO DAILY 04/14/15 Hydrochlorothiazide 12.5 mg PO DAILY 04/14/15 atorvastatin 10 mg tablet 10 mg PO QHS 10/23/19 Alendronate Sodium [Fosamax] 70 mg PO MO 11/07/19 Primary Care Physician: Trace Hilario III, MD [Primary Care Provider] - Please Follow Up With: Sharon Marques MD - call if any problems/questions When: to be seen on Dec 30, at 11:30
[2019-12-31] MEDS: oxyCODONE 5 MG Tablet PO (17:57)
[2020-01-01] MEDS: Lactated Ringers 1,000 ML 75 ML IV (00:12)
[2020-01-01] MEDS: oxyCODONE 5 MG Tablet PO (00:12)
[2020-01-01 03:30] VITALS: BP 110/62; PULSE 68; RESP 16; TEMP 36.4; O2SAT 97
--- NOTE | 2020-01-01 07:03 | PCM.PN.SRG ---
Subjective: feeling well Objective: patient is feeling well, able to void tolerating liquids - Physical Exam Vitals/I&O's: Vital Signs Temp Pulse Resp BP Pulse Ox 97.5 F L 68 16 110/62 97 01/01/20 03:30 01/01/20 03:30 01/01/20 03:30 01/01/20 03:30 01/01/20 03:30 Oxygen Delivery Method Room Air Weight: 65.5 kg Body Mass Index (BMI) 26.4 Intake and Output for Last 24 Hours 12/30/19 12/31/19 01/01/20 23:59 23:59 23:59 Intake Total 106 / 106 1985. Output Total 65 / 65 Balance 106 / 106 1920. / General: Alert, Oriented x3 Oral: Moist Mucosa Neck: Supple Lungs: Normal air movement, - - dressings intact, JUNIE output is sanguinous Cardiovascular: Regular rate Abdomen: Soft Laboratory Results 12/31/19 13:25: PT 12.9, INR 1.0, APTT 25.9 Current Medications Lactated Ringer's () 1,000 mls @ 75 mls/hr IV .[id number] RINA Last Admin: 01/01/20 00:12 Dose: 75 mls/hr Documented by: Morphine Sulfate () 4 mg IV Q2H PRN PRN PRN Reason: Pain Score 6-10/10 Ondansetron HCl (Zofran) 4 mg IV Q8H PRN PRN PRN Reason: NAUSEA/VOMITING Oxycodone HCl (Oxyir) 5 mg PO Q4H PRN PRN PRN Reason: Pain Score 1-5/10 Last Admin: 01/01/20 00:12 Dose: 5 mg Documented by: Sodium Chloride () 10 - 40 ml IV UD PRN PRN Reason: SALINE FLUSH Medical Necessity - Tobacco Use Smoking Status: Never smoker Tobacco Use: Non-smoker Assessment/Plan All Active Problems (Last Reviewed 10/23/19 @ 10:43 by Chris Cabral) Contact with and (suspected) exposure to other viral communicable diseases (Acute) POD#1 s/p mastectomy Plan; d/c to home
[2020-01-01 08:01] VITALS: BP 96/60; PULSE 78; RESP 16; TEMP 37.2; O2SAT 100
--- NOTE | 2020-01-01 11:24 | PHA.DC.MC ---
Pharmacy Service has performed discharge medication reconciliation and counseling for this patient. The patient's discharge medication list was reviewed for discrepancies and discrepancies were resolved. The patient was counseled on the following discharge medications and changes in medications for homegoing were reviewed. 1. OXYCODONE The Reason for Use, instructions for use, and potential side effects were reviewed for all new medications. The patient's questions regarding all of their medications were answered. The patient was able to verbally demonstrate an understanding of their discharge medications. Home Medications Cholecalciferol (Vitamin D3) [D3-2000] 3,000 unit PO DAILY 04/14/15 Hydrochlorothiazide 12.5 mg PO DAILY 04/14/15 atorvastatin 10 mg tablet 10 mg PO QHS 10/23/19 Alendronate Sodium [Fosamax] 70 mg PO MO 11/07/19 Oxycodone [Oxyir] 5 mg PO Q8H PRN PRN 4 Days #12 tab 01/01/20
== END 2020-01-01 13:15 | disposition home or self-care (01) ==
LOC: MS3 01-01 07:55 → SDC 01-01 12:52
PROVIDERS: Anesthesiology; Admitting Provider Surgery; PCP Family Medicine; Referring Provider Surgery; Visit Provider Surgery
PROC: (CPT 19307; principal; 2019-12-31 13:45)
DX: D05.12 Intraductal carcinoma in situ of left breast (principal); Z11.59 Encounter for screening for other viral diseases; E55.9 Vitamin D deficiency, unspecified; M81.0 Age-related osteoporosis without current pathological fracture; G62.81 Critical illness polyneuropathy; Z79.899 Other long term (current) drug therapy; Z86.2 Personal history of diseases of the blood and blood-forming organs and certain disorders involving the immune mechanism
CPT/HCPCS: 00400; 19303; 36415; 85610; 85730; 87635; 88307; 96360; 96361; 99218; 99251; C9803; J7120; G0378; G0463; J2405; U0003

== ENCOUNTER → 2022-01-30 | Outpatient (CLI) | payer MEDICARE, SELFPAY ==
--- NOTE | 2022-01-30 12:49 | CT_ITS ---
EXAM: CT NECK WITH INTRAVENOUS CONTRAST CLINICAL INDICATION: R NECK MASS TECHNIQUE: Helically acquired images were obtained of the neck with intravenous contrast. CTDIvol = ( 11.03 ) mGy, DLP = ( 289.27 ) mGycm This CT exam was performed using one or more of the following dose reduction techniques: automated exposure control, adjustment of the mA and/or kV according to patient size, and/or use of iterative reconstruction technique. This report was created using [employer] report [employer] technology. CONTRAST: IV 100mL Isovue-300 COMPARISON: None. FINDINGS: NASOPHARYNX: Unremarkable. SUPRAHYOID NECK: Unremarkable. Oropharynx, oral cavity, parapharyngeal space and retropharyngeal space are unremarkable. INFRAHYOID NECK: Unremarkable. The larynx, hypopharynx and supraglottis are unremarkable. SUBMANDIBULAR/PAROTID GLANDS: Unremarkable. Glands are normal in size. THYROID: Unremarkable. No enlarged or calcified nodules. BONES/JOINTS: No acute fracture. SOFT TISSUES: Unremarkable. VASCULATURE: No acute findings. LYMPH NODES: Unremarkable. No lymphadenopathy. LUNG APICES: Unremarkable as visualized. CT/Soft Tissue Neck WITH Contrast IMPRESSION: No significant abnormality Electronically Signed: Meet Mcdonald MD at 3:44 EDT ,
[2022-01-30 13:41] LABS: CREATININE FINGERSTICK < 0.9 mg/dL (0.55-1.02); EGFR FINGERSTICK > 60.0000 mL/min (>60)
== END | disposition home or self-care (01) ==
LOC: CT 12:47
PROVIDERS: PCP Internal Medicine; Referring Provider Otolaryngology; Visit Provider Otolaryngology
DX: R22.1 Localized swelling, mass and lump, neck (principal)
CPT/HCPCS: 70491

== ENCOUNTER → 2022-06-15 | Outpatient (CLI) | payer MEDICARE, SELFPAY ==
--- NOTE | 2022-06-15 08:57 | BI_ITS ---
MAMMOGRAPHY - UNILATERAL DIAGNOSTIC: RIGHT BREAST REASON FOR EXAM: Female, 67 years old. Abnormal screening mammogram from outside institution. PERTINENT HISTORY: Personal history of breast cancer. Prior left mastectomy. Grandmother with breast cancer. Aunt with breast cancer. TECHNIQUE: Compression magnification spot views of the right breast were obtained. CAD: Full Field Digital Mammography with Computer Added Detection was performed. COMPARISON: Comparison is made with prior outside examination dated June 06, 2021 and June 08, 2022. FINDINGS: Breast Composition: There are scattered areas of fibroglandular density. There are no dominant masses or suspicious calcifications. No other significant abnormalities are identified. BI/DIAG MAMM W/CAD, UNILAT IMPRESSION: Negative unilateral diagnostic mammogram. Yearly followup mammogram recommended. (A) ASSESSMENT CATEGORY: BIRADS Category 1: Negative. A letter regarding these results will be sent to the patient by the facility within 30 days. Approximately 10% of breast cancers are not detected by mammography. A normal mammogram should not delay biopsy of a clinically suspicious abnormality. Electronically Signed: Delvis Chang MD at 10:19 EST ,
== END | disposition home or self-care (01) ==
PROVIDERS: PCP Internal Medicine; Visit Provider Nurse Practitioner
DX: D05.12 Intraductal carcinoma in situ of left breast (principal); R92.8 Other abnormal and inconclusive findings on diagnostic imaging of breast
CPT/HCPCS: 77065